=== PATIENT | male | born 1970 ===

== ENCOUNTER 2019-11-02 18:07 | Emergency (ER) | payer MEDICAID ==
[~2019-11-02] VITALS: Ht 170.2 cm; Wt 65.0 kg
[2019-11-02 18:23] VITALS: BP 123/78
== END 2019-11-02 19:08 | disposition home or self-care (01) ==
LOC: ER 18:08
DX: A08.4 Viral intestinal infection, unspecified (principal); R11.0 Nausea; R19.7 Diarrhea, unspecified
CPT/HCPCS: 99281